=== PATIENT | male | born 1945 | race Two or more races ===

== ENCOUNTER 2024-06-19 10:45 | Outpatient (CLI) | payer OTHER | END 2024-06-19 11:00 | disposition home or self-care (01) | LOC: RAD 10:45 | PROVIDERS: ATTEND Orthopaedic Surgery | DX: M25.531 Pain in right wrist (principal); M79.644 Pain in right finger(s) ==

== ENCOUNTER 2025-01-11 16:18 | Emergency (ER) | payer OTHER ==
[~2025-01-11] VITALS: Ht 175.3 cm; Wt 77.1 kg
[2025-01-11] MEDS ORDERED: LIDOCAINE HCL 1% 10ML VIAL PERCUT ONE (17:15)
[2025-01-11] MEDS ORDERED: CEFTRIAXONE SODIUM 1,000 MG VIAL IM ONE (17:15)
[2025-01-11] MEDS ORDERED: CEFTRIAXONE SODIUM 1,000 MG VIAL ONE (17:37)
[2025-01-11] MEDS ORDERED: LIDOCAINE HCL 1% 10ML VIAL ONE (17:37)
[2025-01-11 17:44] LABS: BASO % 0.2 % (0.1-1.2); EOS # 0.03 (0.04-0.54); EOS % 0.2 % (0.7-7.0); LYMPH # 1.42 (1.18-3.74); LYMPH % 10.0 % (19.3-53.1); MEAN PLATELET VOLUME 8.40 fl (9.4-12.4); MONO # 0.79 (0.24-0.82); MONO % 5.5 % (4.7-12.5); NEUT # 11.93 (1.56-6.13); NEUT % 83.6 % (34.0-71.1); RED CELL DISTRIBUTION WIDTH 12.7 % (11.6-14.4)
[2025-01-11] MEDS ORDERED: DIPHTH,PERTUSS(ACELL),TET VAC 0.5 ML SYRINGE IM ONE (17:53)
[2025-01-11] MEDS ORDERED: TETANUS & DIPHTHERIA TOX,ADULT 0.5 ML VIAL IM ONE (18:00)
[2025-01-11 18:21] LABS: URINE APPEARANCE Cloudy; URINE BILIRRUBIN Negative (NEGATIVE); URINE BLOOD Large; URINE COLOR Dark Yellow; URINE GLUCOSE Negative (NEGATIVE); URINE KETONE Trace (NEGATIVE); URINE LEUKOCYTE Trace; URINE NITRATE Negative; URINE PROTEIN 30 (NEGATIVE); URINE UROBILINOGEN 1.0 E.U./dl
[2025-01-11 18:24] LABS: URINE BACTERIA 50.4 uL (0.0-1933); URINE CAST 2.63 uL (0.0-1.40); URINE EPITHELIAL CELLS 11.6 uL (0.0-38.8); URINE RBC 143.7 uL (0.0-20.8); URINE WBC 18.4 uL (0.0-23.2)
[2025-01-11 18:40] LABS: TYPE CELLS SQUAMOUS
[2025-01-11 19:02] LABS: COCAINE POSITIVE (NEGATIVE); METHADONE NEGATIVE (NEGATIVE); OPIATES NEGATIVE (NEGATIVE); THC ( Cannabinoids) POSITIVE (NEGATIVE)
[2025-01-11 20:00] LABS: INR 1.14
[2025-01-11 20:08] LABS: ALT/SGPT 13.0 U/L (12-78); AST/SGOT 20.0 U/L (15-37); BILIRUBIN TOTAL 0.66 mg/dL (0.3-1.2); BUN CREA RATIO 11.0 (7.0-25.0); CREATININE SERUM 1.23 mg/dL (0.70-1.30); GFR 57.06; GLOBULINA 3.4 G/DL (2.4-3.5); GLUCOSE FASTING 156.0 mg/dL (65-100); OSMOLALITY SERUM 276.0 MOSM/KG (275-295)
[2025-01-11] MEDS ORDERED: PEPCID AC20 MG PO (20:15)
[2025-01-11] MEDS ORDERED: CEFUROXIME500 MG PO (20:15)
== END 2025-01-11 20:20 | disposition home or self-care (01) ==
LOC: ER 16:19
PROVIDERS: General Practice
DX: S01.81XA Laceration without foreign body of other part of head, initial encounter (principal); W19.XXXA Unspecified fall, initial encounter; Y93.89 Activity, other specified; Y92.89 Other specified places as the place of occurrence of the external cause; Y99.8 Other external cause status
CPT/HCPCS: 12013; 36415; 70150; 70450; 70486; 71045; 72125; 73521; 90471; 90714; 96372; 99284; J0696; J1670